=== PATIENT | male | born 1995 | race Caucasian/White ===

== ENCOUNTER → 2019-12-02 17:08 | Outpatient (BNVA) | payer SELFPAY | PROVIDERS: Visit Provider Nurse Practitioner Family | DX: R60.9 Edema, unspecified (principal); N39.0 Urinary tract infection, site not specified | CPT/HCPCS: 80053; 81001 ==

== ENCOUNTER → 2021-06-06 14:36 | Outpatient (BNVA) | payer OTHER, SELFPAY | PROVIDERS: Visit Provider Nurse Practitioner Family | DX: M25.572 Pain in left ankle and joints of left foot (principal) | CPT/HCPCS: 73610 ==